=== PATIENT | female | born 2000 | race Two or more races ===

== ENCOUNTER → 2024-10-13 | Outpatient (BNVA) | payer MEDICAID, SELFPAY | END | disposition home or self-care (01) | PROVIDERS: PCP Nurse Practitioner Family; Referring Provider Nurse Practitioner Family; Visit Provider Nurse Practitioner Family | DX: Z76.89 Persons encountering health services in other specified circumstances (principal); L70.0 Acne vulgaris | CPT/HCPCS: 99213 ==